=== PATIENT | male | born 1980 | race Caucasian/White ===

== ENCOUNTER 2016-08-23 08:08 | Emergency (ER) | payer SELFPAY ==
[2016-08-23 08:14] VITALS: RESP 16
--- NOTE | 2016-08-23 08:39 | EDPHY ---
H & P Stated Complaint: Glass in left heel 1 month ago - now sore. Time Seen by Provider: 08/23/16 08:23 HPI/ROS: CHIEF COMPLAINT: Heel pain, possible foreign body. HISTORY OF PRESENT ILLNESS: The patient is a 36 y/o male complaining of worsening left plantar heel pain for the last 3 weeks he believes is caused by a piece of embedded glass. About 1 month ago he broke a glass in his kitchen and stepped on one of the pieces. He thought he was able to remove everything and had no persisting pain for the next week. However, 3 weeks ago he began to notice pain at the site of his left heel. This has progressively worsened and is significantly exacerbated when he bears weight. He feels like there is a foreign body just beneath the skin that his body is trying to expel. He denies any other complaints including systemic infectious symptoms. His tetanus vaccination is up-to-date. - Personal History Current Tetanus Diphtheria and Acellular Pertussis (TDAP): Yes - Medical/Surgical History Hx Asthma: No Hx Chronic Respiratory Disease: No Hx Diabetes: No Hx Cardiac Disease: No Hx Renal Disease: No Hx Cirrhosis: No Hx Alcoholism: No Hx HIV/AIDS: No Hx Splenectomy or Spleen Trauma: No Other PMH: right wrist surgery - Social History Smoking Status: Never smoked - Physical Exam Exam: General Appearance: Alert, no distress Eyes: Pupils equal and round, no conjunctival pallor or injection ENT, Mouth: Mucous membranes moist Neck: Normal inspection Neurological: A&O, nonfocal Skin: Warm and dry Extremities: Small area of induration and tenderness on the left plantar heel with overlying discoloration. Other extremities are atraumatic. Psychiatric: Mood and affect normal Constitutional: Initial Vital Signs Temperature (C) 36.6 C 08/23/16 08:11 Heart Rate 90 08/23/16 08:11 Respiratory Rate 16 08/23/16 08:11 Blood Pressure 143/85 H 08/23/16 08:11 O2 Sat (%) 96 08/23/16 08:11 O2 Delivery Mode Room Air Allergies/Adverse Reactions: amoxicillin Allergy (Verified 08/23/16 08:14) Medical Decision Making - Diagnostics Imaging: I viewed and interpreted images myself ED Course/Re-evaluation: This is a healthy 36 y/o male who presents with a 3-week history of left plantar heel tenderness caused by presumed piece of glass. He has a small area of tenderness and induration on the site. I expect there may be a local infection around the piece of glass. Plan for small exploratory incision to see if there is a superficial foreign body that I can extract. Foot x-ray ordered. Procedure: Incision and foreign body extraction The patient's foreign body was located on the plantar aspect of his left heel. Risks, benefits, alternatives discussed with the patient and consent obtained. The area was prepped and draped in sterile fashion. The patient received local anesthesia with 1% lidocaine with epinephrine. The area was incised with a #11 blade and a small quantity of purulent drainage was expressed. With splinter forceps, I felt and heard a small foreign body and eventually was able to visualize and remove a 2mm piece of glass. The wound was irrigated. The patient tolerated the procedure well. The procedure was performed by myself. We will cancel the x-ray. Patient will be discharged with instructions to use ice and ibuprofen for pain and follow up with podiatry as needed for continued symptoms. Return precautions particularly regarding infection were given. He is comfortable with this plan. Departure - Departure Disposition: Home, Routine, Self-Care Clinical Impression: abscess around foreign body Foreign body in foot, left Qualifiers: Encounter type: initial encounter Qualified Code(s): S90.852A - Superficial foreign body, left foot, initial encounter Condition: Good Instructions: Soft Tissue Foreign Body (ED) Additional Instructions: 1. Apply ice to sore areas. Take 600mg ibuprofen every 6-8 hours for the next 3- 4 days for pain. 2. Avoid bearing weight when possible to allow site to heal. 3. Follow up with a metal sander for unimproved symptoms over the next week. 4. Return to the ED for signs of infection including dramatic increase in redness or swelling, large amounts of discharge from the wound, fever, or other worsening of condition. Referrals: Domingo Helms DPM [Doctor of Podiatric Medicine] - As per Instructions Report Scribed for: Paula Torres Report Scribed by: Lucy Mcconnell Date of Report: 08/23/16 Time of Report: 08:39 Physician Review and Approval Statement: 08/23/16 08:39 Portions of this note were transcribed by a medical microbiologist. I personally performed a history, physical exam, medical decision making, and confirmed accuracy of information the transcribed note.
[2016-08-23 09:27] VITALS: BP 148/88; PULSE 82; TEMP 98.1; O2SAT 94
== END 2016-08-23 09:27 | disposition home or self-care (01) ==
PROC: 0JCR0ZZ Extirpation of Matter from Left Foot Subcutaneous Tissue and Fascia, Open Approach (ICD-10-PCS; principal; 2016-08-23)
DX: S90.852A Superficial foreign body, left foot, initial encounter (principal); L02.612 Cutaneous abscess of left foot; W25.XXXA Contact with sharp glass, initial encounter; Y92.000 Kitchen of unspecified non-institutional (private) residence as the place of occurrence of the external cause